=== PATIENT | male | born 1985 | race Caucasian/White ===

== ENCOUNTER 2017-11-20 12:59 | Day surgery (SDC) | payer OTHER ==
[2017-11-19 17:39] VITALS: BMI 24.7
[~2017-11-20 12:59] MED LIST: Dexamethasone 20 MG/5 ML VIAL ONE; Glycopyrrolate 0.2 MG/ML 5 ML SYRINGE ONE; Ketorolac Tromethamine 30 MG/ML VIAL ONE; Lidocaine 1% PF 5 ML VIAL ONE; Ondansetron HCl/PF 4 MG/2 ML Vial ONE; PROPOFOL 200 MG/20 ML VIAL ONE
[2017-11-20] MEDS ORDERED: Bupivacaine/Epinephrine 0.25% 30 ML VIAL ONE (13:22)
[2017-11-20] MEDS ORDERED: Midazolam HCl 2 mg/2 ml Vial ONE (13:33)
[2017-11-20] MEDS ORDERED: HYDROmorphone 0.5 MG/0.5 ML SYRINGE ONE ×3 (13:33→15:49)
[2017-11-20] MEDS ORDERED: Fentanyl 100 MCG/2 ML VIAL ONE ×3 (13:33→15:46)
[2017-11-20] MEDS ORDERED: cefOXitin 2 GM in Sodium Chloride 0.9% 100 ML IVPB SCH (13:45)
[2017-11-20 13:49] LABS: ALT (SGPT) 45 U/L (8-55); AST (SGOT) 19 U/L (5-34); Albumin 4.7 g/dL (3.5-5.0); Alkaline Phosphatase 89 U/L (40-150); Bilirubin, Direct 0.7 mg/dL (0.1-0.3); Bilirubin, Total 1.7 mg/dL (0.2-1.2); Protein, Total 7.1 g/dL (6.0-8.3)
[2017-11-20] MEDS ORDERED: Iothalamate Meglumine 60% 50 ML VIAL FS ONE (13:58)
[2017-11-20] MEDS ORDERED: Morphine 4 MG/ML VIAL ONE (15:38)
--- NOTE | 2017-11-20 15:46 | RAD ---
CHOLANGIOGRAM IN SURGERY 11/20/17 HISTORY: Cholelithiasis. FINDINGS/IMPRESSION: A single limited intraoperative fluoroscopic view from a cholangiogram taken in surgery were submitte d for interpretation. Contrast is seen within the common bile duct and duodenum. No biliary dilatatio n is seen. No filling defects are present. POS: FREDDIE
--- NOTE | 2017-11-20 17:23 | OP ---
PREOPERATIVE DIAGNOSIS: Symptomatic cholelithiasis. SURGEON: Conor Mcneil M.D. PROCEDURE PERFORMED: Laparoscopic cholecystectomy with intraoperative cholangiogram. INDICATIONS: Patient is a 32-year-old male who has been having episodic right upper quadrant pain ra diating to the back associated with nausea. Ultrasound showed cholelithiasis. He also had elevated liver functions. FINDINGS: He had a thickened gallbladder wall with evidence of acute cholecystitis. The cholangiogr am showed very tiny small common duct and free flow in the duodenum. PROCEDURE: After informed consent was obtained, the patient was taken the operating room and given g eneral endotracheal anesthesia, placed in the supine position. The abdomen was prepped and draped in usual fashion. Local anesthesia infiltrated subcutaneously and deep. A subumbilical incision was p erformed. The subcutaneous divided sharply. The fascia grasped. Two stay sutures of [address] to either side of midline. Midline incised. Digital palpation revealed no local adhesions. A yaya nt 10/12 mm trocar inserted. Pneumoperitoneum was created to a pressure of 15 mmHg. Zero degree lap aroscope inserted under direct vision, three 5 mm ports placed subcostally. Gallbladder grasped and advanced superiorly. The peritoneum was lysed distally to reveal the cystic duct, artery and critica l view. A clip was placed at the base of the gallbladder. An incision made in the cystic duct and a n Arrow cholangiocatheter inserted. Intraoperative cholangiogram was performed. This showed free fl ow into the duodenum, no filling defects. The cystic duct was triply ligated and divided. The arter y triply ligated and divided. The gallbladder was removed from its fossa utilizing electrocautery, r emoved from the abdomen through the umbilical port. Hemostasis was assured. Trocars and retractors removed. The fascia closed with interrupted 0 Vicryl suture. The skin closed with interrupted 4-0 R apide. Dermabond applied. The patient tolerated the procedure well and was transferred to recovery in good condition. Sponge and needle count verified correct x2.
== END 2017-11-20 17:08 | disposition home or self-care (01) ==
LOC: SDC 12:59
PROVIDERS: ATTEND Surgery
PROC: 0FT44ZZ Resection of Gallbladder, Percutaneous Endoscopic Approach (ICD-10-PCS; principal; 2017-11-20)
PROC: BF03YZZ Plain Radiography of Gallbladder and Bile Ducts using Other Contrast (ICD-10-PCS; principal; 2017-11-20)
DX: K80.10 Calculus of gallbladder with chronic cholecystitis without obstruction (principal); Z98.890 Other specified postprocedural states
CPT/HCPCS: 36415; 47532; 80076; 88304; 96374; J0694; J1100; J1170; J1885; J2001; J2250; J2270; J2405; J2704; J3010; J7050; Q9961

== ENCOUNTER 2018-06-22 18:54 | Emergency (ER) | payer OTHER ==
[2018-06-22 19:53] LABS: #Basophils 0.1 thou/uL (0.0-0.2); #Eosinphils 0.1 thou/uL (0.0-0.7); #Lymphocytes 1.6 thou/uL (1.20-3.40); #Monocytes 0.3 thou/uL (0.11-0.59); #Neutrophils 4.8 thou/uL (1.40-6.50); %Basophils 1.1 % (0.0-1.0); %Eosinophils 1.1 % (0.0-10.0); %Lymphocytes 23.7 % (21.0-51.0); %Monocytes 4.5 % (0.0-10.0); %Neutrophils 69.6 % (42.0-75.0); Hemoglobin 16.5 g/dL (14.0-18.0); Mean Corpuscular HGB CONC 33.7 g/dL (32.0-36.0); Mean Corpuscular Hemoglobin 26.9 pg (27.0-31.0); Mean Corpuscular Volume 79.8 fL (78.0-98.0); Mean Platelet Volume 6.9 fL (7.4-10.4); Platelet Count 296 thou/uL (130-400); RBC Distribution Width 12.2 % (11.5-14.5); Red Blood Cell (RBC) Count 6.12 mill/uL (4.70-6.10)
--- NOTE | 2018-06-22 19:56 | RAD ---
PORTABLE CHEST: Date: 06-22-18 Provided Clinical History: Chest pain. FINDINGS: Cardiac and mediastinal silhouette is within normal limits. Lungs appear clear. No pleural fluid or p neumothorax apparent. IMPRESSION: No evidence for an acute cardiopulmonary process. POS: [facility]
[2018-06-22 20:20] LABS: ALT (SGPT) 73 U/L (8-55); AST (SGOT) 23 U/L (5-34); Albumin 4.7 g/dL (3.5-5.0); Alkaline Phosphatase 86 U/L (40-150); Anion Gap 14 mmol/L (10-20); BUN (Urea Nitrogen) 12 mg/dL (8.9-20.6); Bilirubin, Total 0.8 mg/dL (0.2-1.2); CK (CPK) 43 U/L (30-200); Calc. Creatinine Clearance 0 mL/min (70-130); Calcium 9.7 mg/dL (7.8-10.44); Carbon Dioxide 25 mmol/L (22-29); Chloride 104 mmol/L (98-107); Estimated GFR-MDRD 84; Globulin 2.5 g/dL (2.4-3.5); Glucose 96 mg/dL (70-105); Lipase 26 U/L (8-78); Potassium 4.1 mmol/L (3.5-5.1); Protein, Total 7.2 g/dL (6.0-8.3); Sodium 139 mmol/L (136-145)
--- NOTE | 2018-06-23 14:16 | EKG ---
Test Reason : CHEST PAIN Blood Pressure : / mmHG Vent. Rate : 073 BPM Atrial Rate : 073 BPM P-R Int : 148 ms QRS Dur : 088 ms QT Int : 382 ms P-R-T Axes : 051 076 059 degrees QTc Int : 420 ms Normal sinus rhythm with sinus arrhythmia ST elevation, consider early repolarization Borderline ECG Confirmed by RAYMOND ABDI, ANTHONY ([id number]), news editor REILLY CARDENAS ([id number]) on 06/23/2018 2:15:54 PM Referred By: DAVONTE ANDRADE Confirmed By:ANTHONY ANDRADE MD
== END 2018-06-22 21:06 | disposition home or self-care (01) ==
LOC: ERS 18:54
DX: R94.31 Abnormal electrocardiogram [ECG] [EKG] (principal); M79.602 Pain in left arm; E78.5 Hyperlipidemia, unspecified
CPT/HCPCS: 36415; 71045; 80053; 82550; 83690; 83880; 84484; 85025; 93005